=== PATIENT | female | born 1980 | race Caucasian/White ===

== ENCOUNTER 2019-09-27 10:00 | Emergency (ER) | payer OTHER, SELFPAY ==
[2019-09-27 10:00] VITALS: BP 129/84; PULSE 122; RESP 16; TEMP 36.3; O2SAT 100; BMI 25.3
--- NOTE | 2019-09-27 10:25 | RAD_ITS ---
STUDY: X-RAY CHEST REASON FOR EXAM: Female, 39 years old. Shoulder pain. TECHNIQUE: PA and lateral views of the chest. COMPARISON: Prior comparison studies are not available for review at this time. FINDINGS: The lungs are clear and expanded. There is no demonstrated pleural abnormality. Normal size heart. Normal mediastinum and yuriy. Normal visualized pulmonary arteries. Normal visualized aortic arch and descending thoracic aorta. There is minimal dextroscoliosis of the lower thoracic spine. Normal visualized ribs, clavicles, and shoulders. There is no demonstrated abnormality of the visualized soft tissue structures of the upper abdomen. RAD/Chest PA and Lateral IMPRESSION: No active pulmonary disease. Electronically Signed: Chente Wu MD at 11:07 EST Tel , Service support ,
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
[2019-09-27 12:24] VITALS: PULSE 99; RESP 16; RESP 17; O2SAT 100
[2019-09-27 12:25] VITALS: O2SAT 100
== END 2019-09-27 12:25 | disposition home or self-care (01) ==
PROVIDERS: Emergency Provider Emergency Medicine; Family Provider Student in an Organized Health Care Education/Training Program; PCP Student in an Organized Health Care Education/Training Program
DX: S16.1XXA Strain of muscle, fascia and tendon at neck level, initial encounter (principal); V43.92XA Unspecified car occupant injured in collision with other type car in traffic accident, initial encounter; Y93.9 Activity, unspecified; Y92.9 Unspecified place or not applicable; Y99.9 Unspecified external cause status; G43.909 Migraine, unspecified, not intractable, without status migrainosus; F90.9 Attention-deficit hyperactivity disorder, unspecified type; Z79.899 Other long term (current) drug therapy
CPT/HCPCS: 71046; 72040; 99282